=== PATIENT | female | born 1985 | race Caucasian/White ===

== ENCOUNTER 2019-08-15 11:46 | Observation (INO) | payer MEDICAID ==
[~2019-08-15] VITALS: Ht 162.6 cm; Wt 82.6 kg
[2019-08-15] MEDS ORDERED: OMEG-31 MT (12:30)
[2019-08-15] MEDS ORDERED: PREN1TAB78 MT (12:30)
[2019-08-15] MEDS ORDERED: FERR325T6 MT (12:30)
[2019-08-15 12:44] LABS: CLARITY URINE CLEAR (CLEAR); COLOR URINE YELLOW (YELLOW); KETONES URINE NEGATIVE (NEGATIVE); LEUKOCYTE ESTERASE URINE NEGATIVE (NEGATIVE); NITRITE URINE NEGATIVE (NEGATIVE); OCCULT BLOOD URINE NEGATIVE (NEGATIVE); PROTEIN URINE NEGATIVE (NEGATIVE); SPECIFIC GRAVITY URINE 1.011 (1.005-1.030); UROBILINOGEN URINE 0.2 E.U./dL (0.2-1.0)
== END 2019-08-15 14:40 | disposition home or self-care (01) ==
LOC: 8 EST LDRP 11:46
PROVIDERS: ADMIT Obstetrics & Gynecology; ATTEND Obstetrics & Gynecology
DX: O99.89 Other specified diseases and conditions complicating pregnancy, childbirth and the puerperium (principal); M54.5 Low back pain; Z3A.35 35 weeks gestation of pregnancy
CPT/HCPCS: 81003; 99281; G0378